=== PATIENT | male | born 2000 | race Caucasian/White ===

== ENCOUNTER 2019-09-20 22:23 | Emergency (ER) | payer SELFPAY ==
--- NOTE | 2019-09-20 22:30 | ED ---
Allergic Reaction/Systemic - HPI Summary HPI Summary: 19-year-old male presents to the emergency department today with chief complaint of allergic reaction after eating a cookie approximately 30 minutes ago. 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 Shortly after ingesting the cookie he felt his throat was tightening and shortness of breath. He administered 1 dose of an EpiPen to himself. EMS administered 10 mg of dexamethasone as well as 50 mg of Benadryl and routes as well as albuterol nebulizer treatment. Upon arrival to the emergency department patient is comfortable with no complaints. There is no evidence of rash, angioedema or airway involvement. Patient is otherwise well and denies fever, chest pain, abdominal pain, pain with urination, nausea, vomiting, diarrhea. - History of Current Complaint Time Seen by Provider: 09/20/19 22:24 Hx Obtained From: Patient Onset/Duration: Gradual Onset Timing: Constant Severity Initially: Moderate Severity Currently: Moderate Pain Scale Used: 0-10 Numeric Character: Swelling Alleviating Factor(s): Antihistamines, Epinephrine Associated Signs And Symptoms: Positive: Cough Wheezing - Related Hx Possible Reaction To: Food - Allergies/Home Medications Allergies/Adverse Reactions: Allergies Allergy/AdvReac Type Severity Reaction Status Date / Time Tree Nuts Allergy Severe Anaphylatic Verified 09/20/19 22:32 Shock Home Medications: Home Medications EPINEPHrine [Epipen] 0.3 mg IJ ONCE PRN 09/20/19 [History Confirmed 09/20/19] Montelukast Sodium TAB* [Singulair TAB*] 10 mg PO DAILY 09/20/19 [History Confirmed 09/20/19] EPINEPHrine [Epipen 2-Alfredo] 0.3 mg IM SEE INSTRUCTIONS PRN #1 inj 09/21/19 [Rx] Review of Systems Constitutional: Negative Eyes: Negative ENT: Negative Cardiovascular: Negative Positive: Cough Gastrointestinal: Negative Genitourinary: Negative Musculoskeletal: Negative Skin: Negative Neurological/Mental Status: Negative Psychological: Normal All Other Systems Reviewed And Are Negative: Yes Physical Exam - Summary Physical Exam Summary: Patient is in no acute distress. There is no evidence of airway involvement. There is no evidence of urticaria. No tongue swelling or oropharyngeal swelling. Triage Information Reviewed: Yes Vital Signs Reviewed: Yes Appearance: Positive: Well-Appearing, No Pain Distress, Well-Nourished Skin: Positive: Warm, Skin Color Reflects Adequate Perfusion Eyes: Positive: EOMI, CAROLYN ENT: Positive: Hearing grossly normal Respiratory/Lung Sounds: Positive: Clear to Auscultation, Breath Sounds Present Cardiovascular: Positive: RRR, S1, S2 Abdomen Description: Positive: Nontender, Soft Bowel Sounds: Positive: Present Musculoskeletal: Positive: Strength/ROM Intact Neurological: Positive: Sensory/Motor Intact, Alert, Oriented to Person Place, Time, Facial Symmetry, Speech Normal Psychiatric: Positive: Normal, Affect/Mood Appropriate AVPU Assessment: Alert Procedures - Sedation Patient Received Moderate/Deep Sedation with Procedure: No Allergic Reaction Course/Dx - Course Course Of Treatment: Patient was evaluated emergency department today for anaphylactic reaction to tree nuts. Patient's airway involvement has resolved. Patient was given self-administered EpiPen and 10 mg of dexamethasone, 50 mg Benadryl, one albuterol nebulizer in route to the emergency department. Patient is currently in no acute distress. Patient was given one additional albuterol nebulizer treatment in the emergency department as well as 1 L of normal saline via IV. Patient was observed for rebound reaction for 4 hours. Patient continued to be stable with no evidence of rebound reaction. Patient was given outpatient prescription for EpiPen replacement. Patient discharged with outpatient follow-up. - Diagnoses Differential Diagnosis/HQI/PQRI: Positive: Anaphylaxis, Angioedema, Bronchospasm , Local Allergic Reaction, Urticaria Provider Diagnoses: Allergic reaction Discharge ED - Sign-Out/Discharge Documenting (check all that apply): Patient Departure - Discharge Plan Condition: Stable Disposition: HOME Prescriptions: EPINEPHrine [Epipen 2-Alfredo] 0.3 mg IM SEE INSTRUCTIONS PRN #1 inj PRN Reason: Allergy Symptoms Patient Education Materials: Anaphylaxis (ED) Referrals: [facility] [Outside] - 3 Days No Primary Care Phys,NOPCP [Primary Care Provider] - Additional Instructions: You were seen in the emergency department today due to an allergic reaction. Return to activity as tolerated. Please follow-up with your [facility] for further evaluation and management. Please return to this emergency Department immediately if you develop any new or worsening symptoms. I sent a prescription for a new set of Epipens to your pharmacy. - Billing Disposition and Condition Condition: STABLE Disposition: Home
[2019-09-20] MEDS ORDERED: Albuterol 2.5 MG/3 ML NEB.SOL* (0.083%) INH ONE ×2 (22:37→22:40)
[2019-09-20] MEDS ORDERED: NS 0.9% 1000 ML** 1,000 ML IV ONE (22:37)
[2019-09-20] MEDS ORDERED: EPINEPHRINE 1 MG/ML 1 ML VIAL ONE (22:40)
[2019-09-21 02:16] VITALS: BP 111/66
== END 2019-09-21 02:15 | disposition home or self-care (01) ==
LOC: ED 22:23
DX: T78.05XA Anaphylactic reaction due to tree nuts and seeds, initial encounter (principal); R05 Cough; R06.2 Wheezing; Z91.018 Allergy to other foods; X58.XXXA Exposure to other specified factors, initial encounter
CPT/HCPCS: 96360; 99284